=== PATIENT | male | born 1940 | race Asian ===

== ENCOUNTER 2016-05-07 13:56 | Inpatient (IN) | payer OTHER, MEDICARE ==
--- NOTE | 2016-05-07 14:44 | ED Physician Chart ---
Chief Complaint/HPI - Patient Information Date Seen:: 05/07/16 Time Seen:: 13:50 Chief Complaint:: Erythema in L elbow for about one week. History of Present Illness:: Brought in by ambulance for the above reason. No fever. Taking po well without N /V/D. No significant pain with L elbow movement. No other bodily pain or discomfort. Allergies:: Allergies Allergy/AdvReac Type Severity Reaction Status Date / Time No Known Allergies Allergy Verified 05/07/16 14:19 Vitals:: Vital Signs - 8 hr 05/07/16 14:20 Temp 98.2 F HR 96 RR 21 BP 137/80 O2 Sat % 99 Historian:: Patient Family MD/PCP:: Dr. Bustos. LMP:: N/A Review:: Nurse's Note Reviewed, Transfer documents Reviewed Review of Systems - Review of Systems General/Constitutional: No fever, No chills, No weight loss, No weakness, No diaphoresis, No edema, No loss of appetite Skin: Other (redness in L elbow area for about one week. See HPI.) Head: No headache, No light-headedness Eyes: No loss of vision, No pain, No diplopia ENT: No earache, No nasal drainage, No sore throat, No tinnitus Neck: No neck pain, No swelling, No thyromegaly, No stiffness, No mass noted Cardio Vascular: No chest pain, No palpitations, No PND, No orthopnea, No edema Pulmonary: No SOB, No cough, No sputum, No wheezing GI: No nausea, No vomiting, No diarrhea, No pain, No melena, No hematochezia, No constipation, No hematemesis G/U: No dysuria, No frequency, No hematuria Musculoskeletal: No bone or joint pain, No back pain, No muscle pain Endocrine: No polyuria, No polydipsia Psychiatric: No prior psych history Hematopoietic: No bruising, No lymphadenopathy Allergic/Immuno: No urticaria, No angioedema Neurological: No syncope, No focal symptoms, No weakness, No paresthesia, No headache, No seizure, No dizziness, No confusion, No vertigo Past Medical History - Past Medical History Past Medical History: HTN, DM, Dementia Family History: Diabetes Melitus (father) Social History: Non Smoker, No Alcohol, No Drug Use, , Care Facility Employment:: Retired. Surgical History: None Psychiatricy History: Dementia Medication: Reviewed Family Medical History - Family Member Mother History Unknown: Yes Ethnicity: Non- Living Status: Physical Exam - Physical Examination General/Constitutional: Awake, Well-developed, well-nourished, Alert, No distress, Non-toxic appearing Other Gen/Cons comments:: Breathes comfortably, speaks clearly, and interacts normally. Head: Atraumatic Eyes: Lids, conjuctiva normal, PERRL, EOMI Skin: No ecchymosis, Well hydrated, No lymphadenopathy Other Skin comments:: also see Extremities Exam below. ENMT: External ears, nose nl, Nasal exam nl, Oropharynx nl Neck: Nontender, Full ROM w/o pain, No JVD, No nuchal rigidity, No mass, No stridor Respiratory: Nl effort/Exclusion, Clear to Auscultation, No Wheeze/Rhonchi/Rales Cardio Vascular: RRR, No murmur, gallop, rubs, NL S1 S2 GI: No tenderness/rebounding/guarding, No organomegaly, No hernia, Normal BS's, Nondistended, No mass/bruits, No McBurney tenderness Other GI comments:: Abdomen is soft. Other Extremities comments:: L elbow: Good ROM. There is an approx. 0.75 cm open wound at posterior aspect. No exudate. There is peripheral erythema with mild swelling and warmth. No crepitus. No detectable motor/sensory/vascular deficit. Good distal pulse and capillary refill. Neuro/Psych: Alert/oriented (oriented x 3.), Mood normal, No focal deficits Labs/Radiology/EKG Results - Lab Results Results: Laboratory Tests 05/07/16 05/07/16 05/07/16 15:10 15:10 15:10 WBC 7.7 RBC 4.57 Hgb 13.4 Hct 39.4 MCV 86.2 MCH 29.3 MCHC Differential 34.0 RDW 12.7 Plt Count 267 MPV 6.8 Neutrophils % 67.6 Lymphocytes % 16.8 L Monocytes % 10.5 H Eosinophils % 3.9 Basophils % 1.2 PT 9.9 INR 1.00 PTT (Actin FS) 22.5 L Sodium 129 L Potassium 4.1 Chloride 99 Carbon Dioxide 26.3 Anion Gap 7.8 BUN 19 Creatinine 0.7 Est GFR ( Amer) TNP Est GFR (Non-Af Amer) TNP BUN/Creatinine Ratio 27.1 Glucose 218 H Hemoglobin A1c % Whole Bld Lactic Acid Calcium 9.4 Total Bilirubin 0.2 L AST 32 ALT 33 Alkaline Phosphatase 136 H Total Protein 6.8 Albumin 3.1 L Globulin 3.7 Albumin/Globulin Ratio 0.8 L 05/07/16 05/07/16 15:10 15:10 WBC RBC Hgb Hct MCV MCH MCHC Differential RDW Plt Count MPV Neutrophils % Lymphocytes % Monocytes % Eosinophils % Basophils % PT INR PTT (Actin FS) Sodium Potassium Chloride Carbon Dioxide Anion Gap BUN Creatinine Est GFR ( Amer) Est GFR (Non-Af Amer) BUN/Creatinine Ratio Glucose Hemoglobin A1c % 10.1 H Whole Bld Lactic Acid 2.38 H* Calcium Total Bilirubin AST ALT Alkaline Phosphatase Total Protein Albumin Globulin Albumin/Globulin Ratio - Radiology Results Results: L elbow X-ray is pending. ED Septic Shock - . Is Septic Shock (SBP<90, OR Lactate>4 mmol\L) present?: No - <6hrs of presentation: Vital Signs: Vital Signs - 8 hr 05/07/16 14:20 Temp 98.2 F HR 96 RR 21 BP 137/80 O2 Sat % 99 Reassessment (Disposition) - Reassessment Reassessment:: 1722 Pt has been repeatedly evaluated. Pt remains stable. Lab findings have been reviewed with pt. Management plan has been discussed. Dr. Bustos is at bedside. Pt is to be admitted to [facility] under his care. Dr. Bustos states that he will follow on pending L elbow X-ray. - Diagnosis Diagnosis:: Open wound at L elbow with associated wound infection/cellulitis, stable. - Patient Disposition Admitted to:: Med/Surg Admitting Medical Physician:: Kalyani Bustos Time:: 17:25 Condition at Disposition:: Stable
[2016-05-07 15:16] LABS: % BASOPHILS 1.2 % (0.0-2.0); % EOSINOPHILS 3.9 % (0.0-5.0); % LYMPHOCYTES 16.8 % (20.0-50.0); % MONOCYTES 10.5 % (2.0-10.0); % NEUTROPHILS 67.6 % (40.0-80.0); HEMATOCRIT 39.4 % (39.0-49.0); HEMOGLOBIN 13.4 gm/dL (12.6-17.4); MEAN CELL VOLUME 86.2 fl (80-99); MEAN CORPUSCULAR HEMOGLOBIN 29.3 pg (27.0-31.0); MEAN PLATELET VOLUME 6.8 fl; NEUTROPHILE ABSOLUTE 5.2 Th/cmm (1.8-8.0); PLATELET COUNT 267 Th/cmm (150-400); RED BLOOD COUNT 4.57 Mil/cmm (3.80-5.80); RED CELL DISTRIBUTION WIDTH 12.7 % (11.5-20.0); WHITE BLOOD COUNT 7.7 Th/cmm (4.8-10.8)
[2016-05-07 15:30] LABS: PROTHROMBIN TIME (TEST) 9.9 SECONDS (9.5-11.5)
[2016-05-07 15:31] LABS: CARBON DIOXIDE 26.3 mEq/L (21.0-31.0); CHLORIDE 99 mEq/L (98-107); POTASSIUM SERUM 4.1 mEq/L (3.5-5.1); SODIUM SERUM 129 mEq/L (136-145)
[2016-05-07 15:32] LABS: ALB/GLOB RATIO 0.8 (1.0-1.8); ALKALINE PHOSPHATASE 136 U/L (34-104); ANION GAP 7.8 (7.0-16.0); BILIRUBIN,TOTAL 0.2 mg/dL (0.3-1.0); BUN - UREA NITROGEN 19 mg/dL (7-25); BUN/CREATININE RATIO 27.1; CALCIUM SERUM 9.4 mg/dL (8.6-10.3); CREATININE - SERUM 0.7 mg/dL (0.7-1.3); GLUCOSE 218 mg/dL (70-105); SGOT 32 U/L (13-39); SGPT/ALT 33 U/L (7-52)
[2016-05-07] MEDS ORDERED: Non-Formulary Item 1 EA (Acetaminophen [8 Hour] 650 MG) PO PRN (17:52)
[2016-05-07] MEDS ORDERED: INSULIN HUMAN REGULAR 100 UNITS/ML UNIT SUBQ SCH (18:00)
[2016-05-07] MEDS ORDERED: Morphine Sulfate 2 mg/mL 1mL Syr IVP PRN ×2 (18:21→18:22)
[2016-05-07] MEDS ORDERED: Piperacillin Sodium/Tazobact 3.375 gm Vial IV ONE (20:55)
--- NOTE | 2016-05-08 05:54 | Consultation ---
REFERRING PHYSICIAN: Dr. Bustos. REASON FOR CONSULTATION: Left elbow cellulitis. HISTORY OF PRESENT ILLNESS: The patient is a 75-year-old male with a past medical history of diabetes mellitus type 2, Alzheimer dementia, brought in from nursing facility for draining wound with the surrounding tender, swelling and erythema of left elbow for 1 week. On initial evaluation, the patient's temperature was 98.2-degree Fahrenheit and WBC count was 7700. The patient was started on vancomycin and Zosyn and ID consult was called for further antibiotic management. PAST MEDICAL HISTORY: Includes as mentioned above, Alzheimer dementia, diabetes mellitus type 2. ALLERGIES: NKDA. MEDICATIONS: As per medication reconciliation sheet. Antibiotic abbott, the patient is on vancomycin and Zosyn. SOCIAL HISTORY: The patient lives at nursing facility. No history of smoking, alcohol or drug use. REVIEW OF SYSTEMS: The patient is a poor historian. GENERAL: The patient has no fever, no chills. HEENT: No diplopia, no photophobia, no sore throat. RESPIRATORY: No cough, no shortness of breath. CARDIOVASCULAR: No chest pain or palpitation. GASTROINTESTINAL: No nausea, no vomiting, no diarrhea, no constipation. GENITOURINARY: No dysuria. NEUROLOGIC: No headache, no dizziness, no focal weakness. SKIN: The patient has draining ulcer from the left elbow with a surrounding painful swelling and erythema. PHYSICAL EXAMINATION: CURRENT VITAL SIGNS: Shows temperature 99.5-degree Fahrenheit, pulse 104, respiration is 18, blood pressure 125/68. GENERAL: The patient is comfortable, lying in the bed, not in acute distress. HEENT: Head is normocephalic, atraumatic. Oral cavity moist, pink tongue. Eyes: No pallor, no icterus. Pupils PERRLA, EOMI. NECK: Supple, no JVD, no carotid bruit. Trachea in midline. CHEST: Bilateral breath sounds. No crackles or wheezing. HEART: S1, S2 within normal limits. Regular rhythm. No murmur, no gallop. ABDOMEN: Soft, nontender, nondistended. Bowel sounds present. EXTREMITIES: No cyanosis, no clubbing. The patient has swelling, redness of the left elbow and draining pus from the wound at the center. NEUROLOGIC: Alert, awake, communicates well. LABORATORY DATA: Lab abbott, current lab shows WBC count is 7700, hemoglobin 13.4, hematocrit is 39.4, platelets are 267,000, neutrophil is 67.6%. Sodium is 129, potassium 4.1, chloride 99, bicarb is 26, BUN is 19, creatinine 0.7, glucose is 218, and lactic acid is 2.38. IMPRESSION: 1. Left elbow cellulitis and the abscess. 2. Lactic acidosis, unknown etiology. The patient has no fever, no tachycardia, no tachypnea and no leukocytosis. 3. Dementia. 4. Diabetes mellitus type 2. 5. Hypertension. RECOMMENDATIONS: We will continue vancomycin. Change Zosyn to Rocephin. Check the wound culture. Thank you, Dr. Bustos, for involving me in taking care of this patient. JOB# [id number]
--- NOTE | 2016-05-08 06:24 | Admit Criteria Form ---
Admit Criteria Forms - Admit Criteria Diagnosis: CELLULITIS Clinical Indications for Admission to Inpatient Care (Place 'X' for any and all applicable criteria): Admission is indicated for ANY ONE of the following(1)(2)(3)(4)(5): [ ]I. Limb-threatening infection [ ]II. High-risk comorbid condition as indicated by ANY ONE of the following: [ ]a) Uncontrolled diabetes (eg, HbA1c greater than 10% (0.1)) [ ]b) Cirrhosis [ ]c) Neutropenia [ ]d) Asplenia [ ]e) Immunosuppression [ ]f) Symptomatic heart failure [ ]III. Failure of outpatient therapy as indicated by ALL of the following: [ ]a) Progression or no improvement after adequate trial (minimum of 48 hours, with longer period for stable lower extremity infection) [ ]b) Adequate antibiotic regimen as indicated by use of ANY ONE of the following: [ ]i) First-generation cephalosporin (e.g., cephalexin) [ ]ii) Antistaphylococcal penicillin (e.g., dicloxacillin) [ ]iii) Penicillin-allergic patient regimen (clindamycin, extended-spectrum fluoroquinolone, or doxycycline) [ ]iv) Resistant organism (eg, methicillin-resistant Staphylococcus aureus) regimen (6) [ ]c) Outpatient intravenous therapy regimen is not appropriate due to ANY ONE of the following. (7)(8)(9)(10): [ ]i) It was tried and was not successful (eg, progression of infection). [ ]ii) It is not available or cannot be arranged in a clinically appropriate time frame (e.g., the next day). [ ]iii) Clinical presentation (eg, acuity of infection, rapidity of progression, confirmed or suspected bacteremia) is judged to require ALL of the following: [ ]1) Immediate initiation of intravenous therapy ( eg, cannot wait for next day) [ ]2) Intensity of patient monitoring and observation (eg, vital sign measurement, checks for infection progression) that cannot be provided at other than inpatient level of care [ ]IV. Mental status changes [ ]V. Bacteremia [ ]. Hemodynamic instability [ ]VII. Suspected necrotizing soft tissue infection (e.g., gas in tissue)(11)( 12) [ ]VIII. Orbital infection (13)(14) [ ]IX. Associated surgical procedure (e.g., abscess drainage, debridement) not amenable to outpatient, emergency department, or observation care [ ]X. Cutaneous gangrene [ ]XI. High fever (temperature greater than 39.5 degrees C (103.1 degrees F) (oral)) not responsive to outpatient, emergency department, or observation care therapy [X]XIII. Inpatient admission required rather than observation care (Also use Cellulitis: Observation Care as appropriate) because of ANY ONE of the following : [ ]a) Periorbital or perineal infection that is severe or worsening [X]b) Severe pain requiring acute inpatient management [ ]c) IV fluid to replace significant ongoing (e.g., for over 24 hours) losses (greater than 3L/m2 per day) [ ]d) Compartment syndrome monitoring (17) [ ]e) Strict or protective (eg, laminar flow) isolation [ ]f) Urgent debridement or skin grafting [ ]g) Bone or joint debridement [ ]h) Immediate inpatient surgery [ ]i) Other condition, treatment or monitoring requiring inpatient admission Extended stay beyond goal length of stay may be needed for (1)(18): [ ]a) Necrotizing soft tissue infection or fasciitis [ ]b) Gram-negative infection [ ]c) Methicillin-resistant Staphylococcal aureus (MRSA) infection [ ]d) Peripheral venous insufficiency with cellulitis [ ]e) Extensive edema [ ]f) Sepsis or continued Hemodynamic instability [ ]g) Continued high fever or mental status change [ ]h) Bacteremia [ ]i) Active serious comorbid conditions ( eg, heart failure, renal insufficiency) The original [facility] content created by [employer] has been revised. The portions of the content which have been revised are identified through the use of italic text or in bold, and [facility] has neither reviewed nor approved the modified material. All other unmodified content is copyright [facility] Please see references footnoted in the original [facility] edition 2016
[2016-05-08 07:24] LABS: % EOSINOPHILS 3.7 % (0.0-5.0); MEAN CORPUSCULAR HGB CONC 34.6 pg (28.0-36.0); WHITE BLOOD COUNT 6.8 Th/cmm (4.8-10.8)
[2016-05-08] MEDS ORDERED: INSULIN GLULISINE 10 UNIT SQ SCH (07:30)
[2016-05-08 07:38] LABS: ALB/GLOB RATIO 0.8 (1.0-1.8); ALKALINE PHOSPHATASE 113 U/L (34-104); ANION GAP 7.2 (7.0-16.0); BILIRUBIN,TOTAL 0.5 mg/dL (0.3-1.0); BUN - UREA NITROGEN 19 mg/dL (7-25); BUN/CREATININE RATIO 27.1; CALCIUM SERUM 8.7 mg/dL (8.6-10.3); CARBON DIOXIDE 27.8 mEq/L (21.0-31.0); CHLORIDE 100 mEq/L (98-107); CHOLESTEROL 189 mg/dL (<200); CREATININE - SERUM 0.7 mg/dL (0.7-1.3); GLUCOSE 282 mg/dL (70-105); SGOT 17 U/L (13-39); SGPT/ALT 30 U/L (7-52); SODIUM SERUM 131 mEq/L (136-145); TRIGLYCERIDES 219 mg/dL (<150)
[2016-05-08 07:52] LABS: % LYMPHOCYTES 17.5 % (20.0-50.0); % MONOCYTES 9.2 % (2.0-10.0); % NEUTROPHILS 67.6 % (40.0-80.0); HEMATOCRIT 38.2 % (39.0-49.0); HEMOGLOBIN 13.2 gm/dL (12.6-17.4); MEAN CELL VOLUME 85.4 fl (80-99); MEAN CORPUSCULAR HEMOGLOBIN 29.5 pg (27.0-31.0); MEAN PLATELET VOLUME 7.6 fl; NEUTROPHILE ABSOLUTE 4.6 Th/cmm (1.8-8.0); PLATELET COUNT 240 Th/cmm (150-400); RED BLOOD COUNT 4.48 Mil/cmm (3.80-5.80); RED CELL DISTRIBUTION WIDTH 12.5 % (11.5-20.0)
--- NOTE | 2016-05-08 08:38 | General Progress Note ---
Objective - Results Result Diagrams: 05/08/16 06:00 05/08/16 06:00 Recent Labs: Laboratory Last Values WBC 6.8 Th/cmm (4.8-10.8) 05/08/16 06:00 RBC 4.48 Mil/cmm (3.80-5.80) 05/08/16 06:00 Hgb 13.2 gm/dL (12.6-17.4) 05/08/16 06:00 Hct 38.2 % (39.0-49.0) L 05/08/16 06:00 MCV 85.4 fl (80-99) 05/08/16 06:00 MCH 29.5 pg (27.0-31.0) 05/08/16 06:00 MCHC Differential 34.6 pg (28.0-36.0) 05/08/16 06:00 RDW 12.5 % (11.5-20.0) 05/08/16 06:00 Plt Count 240 Th/cmm (150-400) 05/08/16 06:00 MPV 7.6 fl 05/08/16 06:00 Neutrophils % 67.6 % (40.0-80.0) 05/08/16 06:00 Lymphocytes % 17.5 % (20.0-50.0) L 05/08/16 06:00 Monocytes % 9.2 % (2.0-10.0) 05/08/16 06:00 Eosinophils % 3.7 % (0.0-5.0) 05/08/16 06:00 Basophils % 2.0 % (0.0-2.0) 05/08/16 06:00 PT 9.9 SECONDS (9.5-11.5) 05/07/16 15:10 INR 1.00 (0.5-1.4) 05/07/16 15:10 PTT (Actin FS) 22.5 SECONDS (26.0-38.0) L 05/07/16 15:10 Sodium 131 mEq/L (136-145) L 05/08/16 06:00 Potassium 4.0 mEq/L (3.5-5.1) 05/08/16 06:00 Chloride 100 mEq/L (98-107) 05/08/16 06:00 Carbon Dioxide 27.8 mEq/L (21.0-31.0) 05/08/16 06:00 Anion Gap 7.2 (7.0-16.0) 05/08/16 06:00 BUN 19 mg/dL (7-25) 05/08/16 06:00 Creatinine 0.7 mg/dL (0.7-1.3) 05/08/16 06:00 Est GFR ( Amer) TNP 05/08/16 06:00 Est GFR (Non-Af Amer) TNP 05/08/16 06:00 BUN/Creatinine Ratio 27.1 05/08/16 06:00 Glucose 282 mg/dL (70-105) H 05/08/16 06:00 POC Glucose 261 MG/DL (70 - 105) H 05/08/16 06:39 Hemoglobin A1c % 10.1 % (4.0-6.0) H 05/07/16 15:10 Whole Bld Lactic Acid 2.08 mmol/L (0.60-2.00) H* 05/07/16 17:10 Calcium 8.7 mg/dL (8.6-10.3) 05/08/16 06:00 Total Bilirubin 0.5 mg/dL (0.3-1.0) 05/08/16 06:00 AST 17 U/L (13-39) 05/08/16 06:00 ALT 30 U/L (7-52) 05/08/16 06:00 Alkaline Phosphatase 113 U/L (34-104) H 05/08/16 06:00 Total Protein 6.3 gm/dL (6.0-8.3) 05/08/16 06:00 Albumin 2.8 gm/dL (4.2-5.5) L 05/08/16 06:00 Globulin 3.5 gm/dL 05/08/16 06:00 Albumin/Globulin Ratio 0.8 (1.0-1.8) L 05/08/16 06:00 Triglycerides 219 mg/dL (<150) H 05/08/16 06:00 Cholesterol 189 mg/dL (<200) 05/08/16 06:00 LDL Cholesterol Direct 120 mg/dL (75-193) 05/08/16 06:00 HDL Cholesterol 43 mg/dL (23-92) 05/08/16 06:00 - Physical Exam Vitals and I&O: Vital Signs Temp 99.2 F 05/08/16 04:00 Pulse 85 05/08/16 04:00 Resp 17 05/08/16 04:00 BP 146/77 05/08/16 04:00 Pulse Ox 96 05/08/16 04:00 Intake & Output 05/07/16 05/08/16 05/08/16 18:59 06:59 18:59 Intake Total 50 Balance 50 Intake: Intake, IV Amount 50 cefTRIAXone 1 gm In 50 Dextrose 5% 50 ml @ 100 mls/hr IV Q24H [facility] Rx#: [id number] Other: # Voids 3 # Bowel Movements 0 Stool Characteristics Soft Formed Active Medications: Current Medications Acetaminophen (Tylenol) 650 mg PO Q6H PRN PRN Reason: PAIN Stop: 07/06/16 18:30 Bisacodyl (Dulcolax 10 Mg Supp) 10 mg RC Q72H PRN PRN Reason: Constipation Stop: 07/06/16 17:51 Calcium/Vitamin D (Oscal W/Vitamin D) 1 tab PO DAILY [facility] Stop: 07/07/16 08:59 Dextrose (Glutose 40%) 30 gm PO PRN PRN PRN Reason: BLOOD GLUCOSE <60 Stop: 07/06/16 17:51 Galantamine Hydrobromide (Razadyne) 8 mg PO BID [facility] Stop: 07/07/16 08:59 Vancomycin HCl 1.25 gm/ Sodium (Chloride) 250 mls @ 165 mls/hr IV Q24H [facility] Stop: 07/07/16 08:59 Ceftriaxone Sodium 1 gm/ (Dextrose) 50 mls @ 100 mls/hr IV Q24H [facility] Stop: 07/07/16 02:59 Last Infusion: 05/08/16 04:25 Dose: Infused Insulin Detemir (Levemir Insulin) 20 units SUBQ QAM [facility] Stop: 07/07/16 08:59 Metoprolol Tartrate (Lopressor) 25 mg PO BID [facility] Stop: 07/07/16 08:59 Miscellaneous (Insulin Glulisine [Apidra]) 10 unit SQ AC [facility] Stop: 07/07/16 07:29 Morphine Sulfate (Morphine) 1 mg IVP Q4H PRN PRN Reason: Pain (Moderate) Stop: 07/06/16 18:20 Morphine Sulfate (Morphine) 2 mg IVP Q4H PRN PRN Reason: Pain (Severe) Stop: 07/06/16 18:21 Neomycin/Polymyxin/Bacitracin (Triple Antibiotic Pkt) 1 pkt TP DAILY [facility] Stop: 07/07/16 08:59 Senna (Senna) 17.2 mg PO HS PRN PRN Reason: Constipation Stop: 07/06/16 17:51 Assessment/Plan - Problem List Patient Problems: All Active Problems SWOLLEN, RED, PAINFUL LEFT ELBOW (Acute)
[2016-05-08] MEDS: Insulin Detemir 100 units/mL 10mL Vial SUBQ SCH (08:55)
[2016-05-08] MEDS: Triple Antibiotic 0.94 gm Pkt TP SCH (08:56)
[2016-05-08] MEDS: Calcium Carb/Vit D 500 mg/200 U Tab PO SCH (08:57)
[2016-05-08] MEDS ORDERED: GALANTAMINE HBR 8 MG PO SCH (09:00)
[2016-05-08] MEDS ORDERED: INSULIN GLARGINE RECOMBINAN SUBQ SCH (09:00)
[2016-05-08] MEDS: INSULIN ASPART SLIDING SCALE 100 UNITS/ML UNIT SUBQ SCH ×3 (11:34→23:07)
--- NOTE | 2016-05-08 13:52 | Infectious Disease Prog Note ---
Infectious Disease Subjective - Review of Systems Service Date: 05/08/16 Subjective: There is no new change, there is no fever. Infectious Disease Objective - Results Result Diagrams: 05/08/16 06:00 05/08/16 06:00 Recent Labs: Laboratory Last Values WBC 6.8 Th/cmm (4.8-10.8) 05/08/16 06:00 RBC 4.48 Mil/cmm (3.80-5.80) 05/08/16 06:00 Hgb 13.2 gm/dL (12.6-17.4) 05/08/16 06:00 Hct 38.2 % (39.0-49.0) L 05/08/16 06:00 MCV 85.4 fl (80-99) 05/08/16 06:00 MCH 29.5 pg (27.0-31.0) 05/08/16 06:00 MCHC Differential 34.6 pg (28.0-36.0) 05/08/16 06:00 RDW 12.5 % (11.5-20.0) 05/08/16 06:00 Plt Count 240 Th/cmm (150-400) 05/08/16 06:00 MPV 7.6 fl 05/08/16 06:00 Neutrophils % 67.6 % (40.0-80.0) 05/08/16 06:00 Lymphocytes % 17.5 % (20.0-50.0) L 05/08/16 06:00 Monocytes % 9.2 % (2.0-10.0) 05/08/16 06:00 Eosinophils % 3.7 % (0.0-5.0) 05/08/16 06:00 Basophils % 2.0 % (0.0-2.0) 05/08/16 06:00 PT 9.9 SECONDS (9.5-11.5) 05/07/16 15:10 INR 1.00 (0.5-1.4) 05/07/16 15:10 PTT (Actin FS) 22.5 SECONDS (26.0-38.0) L 05/07/16 15:10 Sodium 131 mEq/L (136-145) L 05/08/16 06:00 Potassium 4.0 mEq/L (3.5-5.1) 05/08/16 06:00 Chloride 100 mEq/L (98-107) 05/08/16 06:00 Carbon Dioxide 27.8 mEq/L (21.0-31.0) 05/08/16 06:00 Anion Gap 7.2 (7.0-16.0) 05/08/16 06:00 BUN 19 mg/dL (7-25) 05/08/16 06:00 Creatinine 0.7 mg/dL (0.7-1.3) 05/08/16 06:00 Est GFR ( Amer) TNP 05/08/16 06:00 Est GFR (Non-Af Amer) TNP 05/08/16 06:00 BUN/Creatinine Ratio 27.1 05/08/16 06:00 Glucose 282 mg/dL (70-105) H 05/08/16 06:00 POC Glucose 360 MG/DL (70 - 105) H 05/08/16 08:53 Hemoglobin A1c % 10.1 % (4.0-6.0) H 05/07/16 15:10 Whole Bld Lactic Acid 2.08 mmol/L (0.60-2.00) H* 05/07/16 17:10 Calcium 8.7 mg/dL (8.6-10.3) 05/08/16 06:00 Total Bilirubin 0.5 mg/dL (0.3-1.0) 05/08/16 06:00 AST 17 U/L (13-39) 05/08/16 06:00 ALT 30 U/L (7-52) 05/08/16 06:00 Alkaline Phosphatase 113 U/L (34-104) H 05/08/16 06:00 Total Protein 6.3 gm/dL (6.0-8.3) 05/08/16 06:00 Albumin 2.8 gm/dL (4.2-5.5) L 05/08/16 06:00 Globulin 3.5 gm/dL 05/08/16 06:00 Albumin/Globulin Ratio 0.8 (1.0-1.8) L 05/08/16 06:00 Triglycerides 219 mg/dL (<150) H 05/08/16 06:00 Cholesterol 189 mg/dL (<200) 05/08/16 06:00 LDL Cholesterol Direct 120 mg/dL (75-193) 05/08/16 06:00 HDL Cholesterol 43 mg/dL (23-92) 05/08/16 06:00 TSH 0.70 uIU/ml (0.34-5.60) 05/08/16 06:00 - Physical Exam Vitals and I&O: Vital Signs Temp 97.6 F 05/08/16 12:16 Pulse 80 05/08/16 12:16 Resp 20 05/08/16 12:16 BP 127/70 05/08/16 12:16 Pulse Ox 99 05/08/16 12:16 Intake & Output 05/07/16 05/08/16 05/08/16 18:59 06:59 18:59 Intake Total 50 Balance 50 Intake: Intake, IV Amount 50 cefTRIAXone 1 gm In 50 Dextrose 5% 50 ml @ 100 mls/hr IV Q24H [facility] Rx#: [id number] Other: # Voids 3 # Bowel Movements 0 Stool Characteristics Soft Soft Formed Formed Active Medications: Current Medications Acetaminophen (Tylenol) 650 mg PO Q6H PRN PRN Reason: PAIN Stop: 07/06/16 18:30 Bisacodyl (Dulcolax 10 Mg Supp) 10 mg RC Q72H PRN PRN Reason: Constipation Stop: 07/06/16 17:51 Calcium/Vitamin D (Oscal W/Vitamin D) 1 tab PO DAILY [facility] Stop: 07/07/16 08:59 Last Admin: 05/08/16 08:57 Dose: 1 tab Dextrose (Glutose 40%) 30 gm PO PRN PRN PRN Reason: BLOOD GLUCOSE <60 Stop: 07/06/16 17:51 Galantamine Hydrobromide (Razadyne) 8 mg PO BID [facility] Stop: 07/07/16 08:59 Last Admin: 05/08/16 08:57 Dose: 8 mg Vancomycin HCl 1.25 gm/ Sodium (Chloride) 250 mls @ 165 mls/hr IV Q24H [facility] Stop: 07/07/16 08:59 Last Admin: 05/08/16 08:55 Dose: 165 mls/hr Ceftriaxone Sodium 1 gm/ (Dextrose) 50 mls @ 100 mls/hr IV Q24H [facility] Stop: 07/07/16 02:59 Last Infusion: 05/08/16 04:25 Dose: Infused Insulin Aspart (Novolog Insulin Sliding Scale) 0 units SUBQ ACHS [facility] PRN Reason: Protocol Stop: 07/07/16 11:29 Last Admin: 05/08/16 11:34 Dose: 6 units Insulin Detemir (Levemir Insulin) 20 units SUBQ QAM [facility] Stop: 07/07/16 08:59 Last Admin: 05/08/16 08:55 Dose: 20 units Metoprolol Tartrate (Lopressor) 25 mg PO BID [facility] Stop: 07/07/16 08:59 Last Admin: 05/08/16 08:56 Dose: 25 mg Miscellaneous (Insulin Glulisine [Apidra]) 10 unit SQ AC [facility] Stop: 07/07/16 07:29 Miscellaneous (Vancomycin Iv Per Pharmacy) 1 ea [facility] PRN PRN PRN Reason: VANCOMYCIN DOSING Stop: 07/07/16 08:37 Morphine Sulfate (Morphine) 1 mg IVP Q4H PRN PRN Reason: Pain (Moderate) Stop: 07/06/16 18:20 Morphine Sulfate (Morphine) 2 mg IVP Q4H PRN PRN Reason: Pain (Severe) Stop: 07/06/16 18:21 Neomycin/Polymyxin/Bacitracin (Triple Antibiotic Pkt) 1 pkt TP DAILY [facility] Stop: 07/07/16 08:59 Last Admin: 05/08/16 08:56 Dose: 1 pkt Senna (Senna) 17.2 mg PO HS PRN PRN Reason: Constipation Stop: 07/06/16 17:51 General: no acute distress, well developed, well nourished HEENT: atraumatic, normocephalic, PERRLA Neck: supple, no thyromegaly, no lymphadenopathy Cardiovascular: S1S2, regular Lungs: clear to auscultation bilaterally, clear to percussion Abdomen: soft, no tender, no distended Extremities: other (Left elbow has tender erythmatous swelling. with pus draining wound at the center.), no cyanosis, no clubbing, no edema Neurological: awake, alert, oriented Skin: intact Infectious Disease Assmt/Plan - Problem List Patient Problems: All Active Problems SWOLLEN, RED, PAINFUL LEFT ELBOW (Acute) - Assessment Assessment: 1. Left elbow cellulitis. 2. Dementia. 3. DM2. 4. HTN. - Plan Plan: Will continue vanco and Rocephin.
--- NOTE | 2016-05-08 16:26 | Diagnostic Imaging Report ---
Left elbow (4 views) HISTORY: Pain No acute bony amenities are seen. No fractures. Joint spaces appear normal. No radiographic evidence for joint effusion. Soft tissue disruption noted over the dorsal aspect of the elbow. IMPRESSION: 1. No acute or focal bony abnormalities 2. Soft tissue disruption over the dorsal aspect of the elbow
[2016-05-09] MEDS: INSULIN ASPART SLIDING SCALE 100 UNITS/ML UNIT SUBQ SCH ×4 (07:24→21:48)
[2016-05-09] MEDS: Calcium Carb/Vit D 500 mg/200 U Tab PO SCH (09:28)
[2016-05-09] MEDS: Triple Antibiotic 0.94 gm Pkt TP SCH (09:28)
--- NOTE | 2016-05-09 09:52 | General Progress Note ---
Objective - Results Result Diagrams: 05/08/16 06:00 05/08/16 06:00 Recent Labs: Laboratory Last Values WBC 6.8 Th/cmm (4.8-10.8) 05/08/16 06:00 RBC 4.48 Mil/cmm (3.80-5.80) 05/08/16 06:00 Hgb 13.2 gm/dL (12.6-17.4) 05/08/16 06:00 Hct 38.2 % (39.0-49.0) L 05/08/16 06:00 MCV 85.4 fl (80-99) 05/08/16 06:00 MCH 29.5 pg (27.0-31.0) 05/08/16 06:00 MCHC Differential 34.6 pg (28.0-36.0) 05/08/16 06:00 RDW 12.5 % (11.5-20.0) 05/08/16 06:00 Plt Count 240 Th/cmm (150-400) 05/08/16 06:00 MPV 7.6 fl 05/08/16 06:00 Neutrophils % 67.6 % (40.0-80.0) 05/08/16 06:00 Lymphocytes % 17.5 % (20.0-50.0) L 05/08/16 06:00 Monocytes % 9.2 % (2.0-10.0) 05/08/16 06:00 Eosinophils % 3.7 % (0.0-5.0) 05/08/16 06:00 Basophils % 2.0 % (0.0-2.0) 05/08/16 06:00 PT 9.9 SECONDS (9.5-11.5) 05/07/16 15:10 INR 1.00 (0.5-1.4) 05/07/16 15:10 PTT (Actin FS) 22.5 SECONDS (26.0-38.0) L 05/07/16 15:10 Sodium 131 mEq/L (136-145) L 05/08/16 06:00 Potassium 4.0 mEq/L (3.5-5.1) 05/08/16 06:00 Chloride 100 mEq/L (98-107) 05/08/16 06:00 Carbon Dioxide 27.8 mEq/L (21.0-31.0) 05/08/16 06:00 Anion Gap 7.2 (7.0-16.0) 05/08/16 06:00 BUN 19 mg/dL (7-25) 05/08/16 06:00 Creatinine 0.7 mg/dL (0.7-1.3) 05/08/16 06:00 Est GFR ( Amer) TNP 05/08/16 06:00 Est GFR (Non-Af Amer) TNP 05/08/16 06:00 BUN/Creatinine Ratio 27.1 05/08/16 06:00 Glucose 282 mg/dL (70-105) H 05/08/16 06:00 POC Glucose 281 MG/DL (70 - 105) H 05/09/16 05:08 Hemoglobin A1c % 10.1 % (4.0-6.0) H 05/07/16 15:10 Whole Bld Lactic Acid 2.08 mmol/L (0.60-2.00) H* 05/07/16 17:10 Calcium 8.7 mg/dL (8.6-10.3) 05/08/16 06:00 Total Bilirubin 0.5 mg/dL (0.3-1.0) 05/08/16 06:00 AST 17 U/L (13-39) 05/08/16 06:00 ALT 30 U/L (7-52) 05/08/16 06:00 Alkaline Phosphatase 113 U/L (34-104) H 05/08/16 06:00 Total Protein 6.3 gm/dL (6.0-8.3) 05/08/16 06:00 Albumin 2.8 gm/dL (4.2-5.5) L 05/08/16 06:00 Globulin 3.5 gm/dL 05/08/16 06:00 Albumin/Globulin Ratio 0.8 (1.0-1.8) L 05/08/16 06:00 Triglycerides 219 mg/dL (<150) H 05/08/16 06:00 Cholesterol 189 mg/dL (<200) 05/08/16 06:00 LDL Cholesterol Direct 120 mg/dL (75-193) 05/08/16 06:00 HDL Cholesterol 43 mg/dL (23-92) 05/08/16 06:00 TSH 0.70 uIU/ml (0.34-5.60) 05/08/16 06:00 - Physical Exam Vitals and I&O: Vital Signs Temp 97.5 F 05/09/16 03:59 Pulse 90 05/09/16 09:28 Resp 20 05/09/16 03:59 BP 137/72 05/09/16 09:28 Pulse Ox 97 05/09/16 03:59 Intake & Output 05/08/16 05/09/16 05/09/16 18:59 06:59 18:59 Intake Total 250 Balance 250 Intake: Intake, IV Amount 250 Vancomycin HCl 1.25 gm In 250 Sodium Chloride 0.9% 250 ml @ 165 mls/hr IV Q24H [facility] Rx#:[id number] Other: # Voids 1 Stool Characteristics Soft Formed Active Medications: Current Medications Acetaminophen (Tylenol) 650 mg PO Q6H PRN PRN Reason: PAIN Stop: 07/06/16 18:30 Bisacodyl (Dulcolax 10 Mg Supp) 10 mg RC Q72H PRN PRN Reason: Constipation Stop: 07/06/16 17:51 Calcium/Vitamin D (Oscal W/Vitamin D) 1 tab PO DAILY [facility] Stop: 07/07/16 08:59 Last Admin: 05/09/16 09:28 Dose: 1 tab Dextrose (Glutose 40%) 30 gm PO PRN PRN PRN Reason: BLOOD GLUCOSE <60 Stop: 07/06/16 17:51 Galantamine Hydrobromide (Razadyne) 8 mg PO BID [facility] Stop: 07/07/16 08:59 Last Admin: 05/08/16 16:59 Dose: 8 mg Vancomycin HCl 1.25 gm/ Sodium (Chloride) 250 mls @ 165 mls/hr IV Q24H [facility] Stop: 07/07/16 08:59 Last Admin: 05/09/16 09:27 Dose: 165 mls/hr Ceftriaxone Sodium 1 gm/ (Dextrose) 50 mls @ 100 mls/hr IV Q24H [facility] Stop: 07/07/16 02:59 Last Admin: 05/09/16 04:15 Dose: 100 mls/hr Insulin Aspart (Novolog Insulin Sliding Scale) 0 units SUBQ ACHS ADAM PRN Reason: Protocol Stop: 07/07/16 11:29 Last Admin: 05/09/16 07:24 Dose: 6 units Insulin Detemir (Levemir Insulin) 20 units SUBQ QAM [facility] Stop: 07/07/16 08:59 Last Admin: 05/08/16 08:55 Dose: 20 units Metoprolol Tartrate (Lopressor) 25 mg PO BID [facility] Stop: 07/07/16 08:59 Last Admin: 05/09/16 09:28 Dose: 25 mg Miscellaneous (Insulin Glulisine [Apidra]) 10 unit SQ AC [facility] Stop: 07/07/16 07:29 Miscellaneous (Vancomycin Iv Per Pharmacy) 1 ea [facility] PRN PRN PRN Reason: VANCOMYCIN DOSING Stop: 07/07/16 08:37 Morphine Sulfate (Morphine) 1 mg IVP Q4H PRN PRN Reason: Pain (Moderate) Stop: 07/06/16 18:20 Morphine Sulfate (Morphine) 2 mg IVP Q4H PRN PRN Reason: Pain (Severe) Stop: 07/06/16 18:21 Neomycin/Polymyxin/Bacitracin (Triple Antibiotic Pkt) 1 pkt TP DAILY [facility] Stop: 07/07/16 08:59 Last Admin: 05/09/16 09:28 Dose: 1 pkt Senna (Senna) 17.2 mg PO HS PRN PRN Reason: Constipation Stop: 07/06/16 17:51 Assessment/Plan - Problem List Patient Problems: All Active Problems SWOLLEN, RED, PAINFUL LEFT ELBOW (Acute)
[2016-05-09] MEDS: Insulin Detemir 100 units/mL 10mL Vial SUBQ SCH (10:07)
[2016-05-09 10:22] LABS: % MONOCYTES 6.6 % (2.0-10.0); % NEUTROPHILS 72.4 % (40.0-80.0); HEMATOCRIT 39.4 % (39.0-49.0); HEMOGLOBIN 13.5 gm/dL (12.6-17.4); MEAN CELL VOLUME 86.1 fl (80-99); MEAN CORPUSCULAR HEMOGLOBIN 29.5 pg (27.0-31.0); MEAN CORPUSCULAR HGB CONC 34.3 pg (28.0-36.0); MEAN PLATELET VOLUME 7.8 fl; NEUTROPHILE ABSOLUTE 4.9 Th/cmm (1.8-8.0); PLATELET COUNT 230 Th/cmm (150-400); RED BLOOD COUNT 4.58 Mil/cmm (3.80-5.80); RED CELL DISTRIBUTION WIDTH 12.6 % (11.5-20.0); WHITE BLOOD COUNT 6.7 Th/cmm (4.8-10.8)
[2016-05-09 10:57] LABS: ANION GAP 9.3 (7.0-16.0); BUN - UREA NITROGEN 23 mg/dL (7-25); BUN/CREATININE RATIO 32.9; CHLORIDE 97 mEq/L (98-107); CREATININE - SERUM 0.7 mg/dL (0.7-1.3); POTASSIUM SERUM 4.3 mEq/L (3.5-5.1); SODIUM SERUM 126 mEq/L (136-145)
--- NOTE | 2016-05-09 10:57 | History & Physical ---
This is a 75-year-old male came in from [facility]. CHIEF COMPLAINT: Redness in the left elbow for a week, brought in by paramedics to the ER. REVIEW OF SYSTEMS: GENERAL: No fever. No chills. SKIN: Left elbow redness. HEAD: No headache. EYES: No loss of vision. No eye pain. ENT: No ear pain, no sore throat, no tinnitus. NECK: No neck pain, no swelling. CARDIOVASCULAR: No chest pain, no palpitation. PULMONARY: No shortness of breath, no cough. GASTROINTESTINAL: No nausea, no vomiting, no abdominal pain. GENITOURINARY: No dysuria. MUSCULOSKELETAL: No muscle pain, no back pain, no joint pain. ENDOCRINE: No polyuria, no polydipsia. NEUROLOGIC: No syncope, no focal symptoms. No weakness. PAST MEDICAL HISTORY: Includes hypertension, diabetes, dementia. SOCIAL HISTORY: Unremarkable. FAMILY HISTORY: Unremarkable. PHYSICAL EXAMINATION: GENERAL: Awake, alert, well-nourished, not in distress. HEAD: Atraumatic, normocephalic. EYES: PERRLA bilateral, but no conjunctival injections. SKIN: No skin breakdown, redness on the left elbow. ENMT: External ears are normal. ____ nostrils. NECK: Negative for JVD. No nuchal rigidity. RESPIRATORY: Normal air ____. Clear to auscultation. CARDIOVASCULAR: No murmurs, S1, S2, regular rate and rhythm. GASTROINTESTINAL: Positive bowel sounds, soft, and nontender. GENITOURINARY: Negative for CVA tenderness. NEUROLOGICAL: Awake, alert, oriented x 3 with no focal deficits. ADMITTING DIAGNOSIS: Left elbow cellulitis, history of hypertension, history of dementia and history of diabetes. PLAN: The patient will be admitted to the floor. We will get ID consultation with Dr. Genaro Kiser for antibiotic management. JOB# [id number]
[2016-05-09 11:11] LABS: GLUCOSE 511 mg/dL (70-105)
--- NOTE | 2016-05-09 15:01 | Infectious Disease Prog Note ---
Infectious Disease Subjective - Review of Systems Service Date: 05/09/16 Subjective: There is no new change, there is no fever. Infectious Disease Objective - Results Result Diagrams: 05/09/16 09:00 05/09/16 09:00 Recent Labs: Laboratory Last Values WBC 6.7 Th/cmm (4.8-10.8) 05/09/16 09:00 RBC 4.58 Mil/cmm (3.80-5.80) 05/09/16 09:00 Hgb 13.5 gm/dL (12.6-17.4) 05/09/16 09:00 Hct 39.4 % (39.0-49.0) 05/09/16 09:00 MCV 86.1 fl (80-99) 05/09/16 09:00 MCH 29.5 pg (27.0-31.0) 05/09/16 09:00 MCHC Differential 34.3 pg (28.0-36.0) 05/09/16 09:00 RDW 12.6 % (11.5-20.0) 05/09/16 09:00 Plt Count 230 Th/cmm (150-400) 05/09/16 09:00 MPV 7.8 fl 05/09/16 09:00 Neutrophils % 72.4 % (40.0-80.0) 05/09/16 09:00 Lymphocytes % 16.0 % (20.0-50.0) L 05/09/16 09:00 Monocytes % 6.6 % (2.0-10.0) 05/09/16 09:00 Eosinophils % 3.0 % (0.0-5.0) 05/09/16 09:00 Basophils % 2.0 % (0.0-2.0) 05/09/16 09:00 PT 9.9 SECONDS (9.5-11.5) 05/07/16 15:10 INR 1.00 (0.5-1.4) 05/07/16 15:10 PTT (Actin FS) 22.5 SECONDS (26.0-38.0) L 05/07/16 15:10 Sodium 126 mEq/L (136-145) L 05/09/16 09:00 Potassium 4.3 mEq/L (3.5-5.1) 05/09/16 09:00 Chloride 97 mEq/L (98-107) L 05/09/16 09:00 Carbon Dioxide 24.0 mEq/L (21.0-31.0) 05/09/16 09:00 Anion Gap 9.3 (7.0-16.0) 05/09/16 09:00 BUN 23 mg/dL (7-25) 05/09/16 09:00 Creatinine 0.7 mg/dL (0.7-1.3) 05/09/16 09:00 Est GFR ( Amer) TNP 05/09/16 09:00 Est GFR (Non-Af Amer) TNP 05/09/16 09:00 BUN/Creatinine Ratio 32.9 05/09/16 09:00 Glucose 511 mg/dL (70-105) H* 05/09/16 09:00 POC Glucose 243 MG/DL (70 - 105) H 05/09/16 14:40 Hemoglobin A1c % 10.1 % (4.0-6.0) H 05/07/16 15:10 Whole Bld Lactic Acid 2.08 mmol/L (0.60-2.00) H* 05/07/16 17:10 Calcium 9.0 mg/dL (8.6-10.3) 05/09/16 09:00 Total Bilirubin 0.5 mg/dL (0.3-1.0) 05/08/16 06:00 AST 17 U/L (13-39) 05/08/16 06:00 ALT 30 U/L (7-52) 05/08/16 06:00 Alkaline Phosphatase 113 U/L (34-104) H 05/08/16 06:00 Total Protein 6.3 gm/dL (6.0-8.3) 05/08/16 06:00 Albumin 2.8 gm/dL (4.2-5.5) L 05/08/16 06:00 Globulin 3.5 gm/dL 05/08/16 06:00 Albumin/Globulin Ratio 0.8 (1.0-1.8) L 05/08/16 06:00 Triglycerides 219 mg/dL (<150) H 05/08/16 06:00 Cholesterol 189 mg/dL (<200) 05/08/16 06:00 LDL Cholesterol Direct 120 mg/dL (75-193) 05/08/16 06:00 HDL Cholesterol 43 mg/dL (23-92) 05/08/16 06:00 TSH 0.70 uIU/ml (0.34-5.60) 05/08/16 06:00 - Physical Exam Vitals and I&O: Vital Signs Temp 98.2 F 05/09/16 11:00 Pulse 85 05/09/16 11:00 Resp 18 05/09/16 11:00 BP 120/58 05/09/16 11:00 Pulse Ox 97 05/09/16 11:00 Intake & Output 05/08/16 05/09/16 05/09/16 18:59 06:59 18:59 Intake Total 250 250 Balance 250 250 Intake: Intake, IV Amount 250 250 Vancomycin HCl 1.25 gm In 250 250 Sodium Chloride 0.9% 250 ml @ 165 mls/hr IV Q24H [facility] Rx#:[id number] Other: # Voids 1 Stool Characteristics Soft Formed Active Medications: Current Medications Acetaminophen (Tylenol) 650 mg PO Q6H PRN PRN Reason: PAIN Stop: 07/06/16 18:30 Bisacodyl (Dulcolax 10 Mg Supp) 10 mg RC Q72H PRN PRN Reason: Constipation Stop: 07/06/16 17:51 Calcium/Vitamin D (Oscal W/Vitamin D) 1 tab PO DAILY [facility] Stop: 07/07/16 08:59 Last Admin: 05/09/16 09:28 Dose: 1 tab Dextrose (Glutose 40%) 30 gm PO PRN PRN PRN Reason: BLOOD GLUCOSE <60 Stop: 07/06/16 17:51 Galantamine Hydrobromide (Razadyne) 8 mg PO BID [facility] Stop: 07/07/16 08:59 Last Admin: 05/09/16 12:44 Dose: 8 mg Vancomycin HCl 1.25 gm/ Sodium (Chloride) 250 mls @ 165 mls/hr IV Q24H [facility] Stop: 07/07/16 08:59 Last Infusion: 05/09/16 11:30 Dose: Infused Ceftriaxone Sodium 1 gm/ (Dextrose) 50 mls @ 100 mls/hr IV Q24H [facility] Stop: 07/07/16 02:59 Last Admin: 05/09/16 04:15 Dose: 100 mls/hr Insulin Aspart (Novolog Insulin Sliding Scale) 0 units SUBQ ACHS [facility] PRN Reason: Protocol Stop: 07/07/16 11:29 Last Admin: 05/09/16 12:04 Dose: 12 units Insulin Detemir (Levemir Insulin) 25 units SUBQ BID [facility] PRN Reason: Protocol Stop: 07/08/16 16:59 Metoprolol Tartrate (Lopressor) 25 mg PO BID [facility] Stop: 07/07/16 08:59 Last Admin: 05/09/16 09:28 Dose: 25 mg Miscellaneous (Vancomycin Iv Per Pharmacy) 1 ea [facility] PRN PRN PRN Reason: VANCOMYCIN DOSING Stop: 07/07/16 08:37 Morphine Sulfate (Morphine) 1 mg IVP Q4H PRN PRN Reason: Pain (Moderate) Stop: 07/06/16 18:20 Morphine Sulfate (Morphine) 2 mg IVP Q4H PRN PRN Reason: Pain (Severe) Stop: 07/06/16 18:21 Neomycin/Polymyxin/Bacitracin (Triple Antibiotic Pkt) 1 pkt TP DAILY [facility] Stop: 07/07/16 08:59 Last Admin: 05/09/16 09:28 Dose: 1 pkt Senna (Senna) 17.2 mg PO HS PRN PRN Reason: Constipation Stop: 07/06/16 17:51 General: no acute distress, well developed, well nourished HEENT: atraumatic, normocephalic, PERRLA Neck: supple, no thyromegaly, no lymphadenopathy Cardiovascular: no S1S2, no regular Lungs: clear to auscultation bilaterally, clear to percussion Abdomen: soft, no tender, no distended, no mass Extremities: no cyanosis, no clubbing, no edema (eft elbow is swollen and red.) Neurological: awake, alert, oriented, CN 2-12 intact Infectious Disease Assmt/Plan - Problem List Patient Problems: All Active Problems SWOLLEN, RED, PAINFUL LEFT ELBOW (Acute) - Assessment Assessment: 1. Left elbow cellulitis. 2. Dementia. 3. DM2. uncontrolled. 4. HTN. - Plan Plan: Will continue vanco and Rocephin. wond care. incrrese levmir 25 units bid..
[2016-05-10] MEDS: INSULIN ASPART SLIDING SCALE 100 UNITS/ML UNIT SUBQ SCH ×3 (06:54→17:02)
[2016-05-10] MEDS: Triple Antibiotic 0.94 gm Pkt TP SCH (09:34)
[2016-05-10] MEDS: Calcium Carb/Vit D 500 mg/200 U Tab PO SCH (09:35)
[2016-05-10] MEDS: Insulin Detemir 100 units/mL 10mL Vial SUBQ SCH ×2 (09:38→17:03)
--- NOTE | 2016-05-10 09:41 | General Progress Note ---
Objective - Results Result Diagrams: 05/09/16 09:00 05/09/16 09:00 Recent Labs: Laboratory Last Values WBC 6.7 Th/cmm (4.8-10.8) 05/09/16 09:00 RBC 4.58 Mil/cmm (3.80-5.80) 05/09/16 09:00 Hgb 13.5 gm/dL (12.6-17.4) 05/09/16 09:00 Hct 39.4 % (39.0-49.0) 05/09/16 09:00 MCV 86.1 fl (80-99) 05/09/16 09:00 MCH 29.5 pg (27.0-31.0) 05/09/16 09:00 MCHC Differential 34.3 pg (28.0-36.0) 05/09/16 09:00 RDW 12.6 % (11.5-20.0) 05/09/16 09:00 Plt Count 230 Th/cmm (150-400) 05/09/16 09:00 MPV 7.8 fl 05/09/16 09:00 Neutrophils % 72.4 % (40.0-80.0) 05/09/16 09:00 Lymphocytes % 16.0 % (20.0-50.0) L 05/09/16 09:00 Monocytes % 6.6 % (2.0-10.0) 05/09/16 09:00 Eosinophils % 3.0 % (0.0-5.0) 05/09/16 09:00 Basophils % 2.0 % (0.0-2.0) 05/09/16 09:00 PT 9.9 SECONDS (9.5-11.5) 05/07/16 15:10 INR 1.00 (0.5-1.4) 05/07/16 15:10 PTT (Actin FS) 22.5 SECONDS (26.0-38.0) L 05/07/16 15:10 Sodium 126 mEq/L (136-145) L 05/09/16 09:00 Potassium 4.3 mEq/L (3.5-5.1) 05/09/16 09:00 Chloride 97 mEq/L (98-107) L 05/09/16 09:00 Carbon Dioxide 24.0 mEq/L (21.0-31.0) 05/09/16 09:00 Anion Gap 9.3 (7.0-16.0) 05/09/16 09:00 BUN 23 mg/dL (7-25) 05/09/16 09:00 Creatinine 0.7 mg/dL (0.7-1.3) 05/09/16 09:00 Est GFR ( Amer) TNP 05/09/16 09:00 Est GFR (Non-Af Amer) TNP 05/09/16 09:00 BUN/Creatinine Ratio 32.9 05/09/16 09:00 Glucose 259 mg/dL (70-105) H 05/09/16 14:15 POC Glucose 258 MG/DL (70 - 105) H 05/10/16 06:12 Hemoglobin A1c % 10.1 % (4.0-6.0) H 05/07/16 15:10 Whole Bld Lactic Acid 2.08 mmol/L (0.60-2.00) H* 05/07/16 17:10 Calcium 9.0 mg/dL (8.6-10.3) 05/09/16 09:00 Total Bilirubin 0.5 mg/dL (0.3-1.0) 05/08/16 06:00 AST 17 U/L (13-39) 05/08/16 06:00 ALT 30 U/L (7-52) 05/08/16 06:00 Alkaline Phosphatase 113 U/L (34-104) H 05/08/16 06:00 Total Protein 6.3 gm/dL (6.0-8.3) 05/08/16 06:00 Albumin 2.8 gm/dL (4.2-5.5) L 05/08/16 06:00 Globulin 3.5 gm/dL 05/08/16 06:00 Albumin/Globulin Ratio 0.8 (1.0-1.8) L 05/08/16 06:00 Triglycerides 219 mg/dL (<150) H 05/08/16 06:00 Cholesterol 189 mg/dL (<200) 05/08/16 06:00 LDL Cholesterol Direct 120 mg/dL (75-193) 05/08/16 06:00 HDL Cholesterol 43 mg/dL (23-92) 05/08/16 06:00 TSH 0.70 uIU/ml (0.34-5.60) 05/08/16 06:00 Vancomycin Trough 5.4 ug/mL (10-20) L 05/10/16 08:10 - Physical Exam Vitals and I&O: Vital Signs Temp 98.7 F 05/10/16 04:00 Pulse 89 05/10/16 09:35 Resp 19 05/10/16 04:00 BP 133/73 05/10/16 09:35 Pulse Ox 96 05/10/16 04:00 Intake & Output 05/09/16 05/10/16 05/10/16 18:59 06:59 18:59 Intake Total 250 1550 Balance 250 1550 Intake: Intake, IV Amount 250 Vancomycin HCl 1.25 gm In 250 Sodium Chloride 0.9% 250 ml @ 165 mls/hr IV Q24H [facility] Rx#:[id number] Oral 1550 Other: # Voids 2 Active Medications: Current Medications Acetaminophen (Tylenol) 650 mg PO Q6H PRN PRN Reason: PAIN Stop: 07/06/16 18:30 Bisacodyl (Dulcolax 10 Mg Supp) 10 mg RC Q72H PRN PRN Reason: Constipation Stop: 07/06/16 17:51 Calcium/Vitamin D (Oscal W/Vitamin D) 1 tab PO DAILY [facility] Stop: 07/07/16 08:59 Last Admin: 05/10/16 09:35 Dose: 1 tab Dextrose (Glutose 40%) 30 gm PO PRN PRN PRN Reason: BLOOD GLUCOSE <60 Stop: 07/06/16 17:51 Galantamine Hydrobromide (Razadyne) 8 mg PO BID [facility] Stop: 07/07/16 08:59 Last Admin: 05/10/16 09:34 Dose: 8 mg Ceftriaxone Sodium 1 gm/ (Dextrose) 50 mls @ 100 mls/hr IV Q24H [facility] Stop: 07/07/16 02:59 Last Admin: 05/10/16 02:57 Dose: 100 mls/hr Vancomycin HCl 1.25 gm/ Sodium (Chloride) 250 mls @ 165 mls/hr IV Q12H [facility] Stop: 07/09/16 08:59 Insulin Aspart (Novolog Insulin Sliding Scale) 0 units SUBQ ACHS ADAM PRN Reason: Protocol Stop: 07/07/16 11:29 Last Admin: 05/10/16 06:54 Dose: 6 units Insulin Detemir (Levemir Insulin) 25 units SUBQ BID [facility] PRN Reason: Protocol Stop: 07/08/16 16:59 Metoprolol Tartrate (Lopressor) 25 mg PO BID [facility] Stop: 07/07/16 08:59 Last Admin: 05/10/16 09:35 Dose: 25 mg Miscellaneous (Vancomycin Iv Per Pharmacy) 1 ea [facility] PRN PRN PRN Reason: VANCOMYCIN DOSING Stop: 07/07/16 08:37 Morphine Sulfate (Morphine) 1 mg IVP Q4H PRN PRN Reason: Pain (Moderate) Stop: 07/06/16 18:20 Morphine Sulfate (Morphine) 2 mg IVP Q4H PRN PRN Reason: Pain (Severe) Stop: 07/06/16 18:21 Neomycin/Polymyxin/Bacitracin (Triple Antibiotic Pkt) 1 pkt TP DAILY [facility] Stop: 07/07/16 08:59 Last Admin: 05/10/16 09:34 Dose: 1 pkt Senna (Senna) 17.2 mg PO HS PRN PRN Reason: Constipation Stop: 07/06/16 17:51 Assessment/Plan - Problem List Patient Problems: All Active Problems SWOLLEN, RED, PAINFUL LEFT ELBOW (Acute)
--- NOTE | 2016-05-22 19:34 | Discharge Summary ---
HOSPITAL COURSE: The patient was admitted from a senior living to the Emergency Room with chief complaint of redness on the left elbow for one week. Then from ER, the patient was noted to have cellulitis on the left elbow and the patient was admitted to med/surg floor. Series of IV antibiotics given with the consultation from ID specialist. The patient was discharged back to [facility] with final diagnosis of cellulitis of the left elbow, dementia, and history of diabetes. JOB# [id number]
== END 2016-05-10 18:15 | DRG 872 ==
LOC: ER 13:56 → MSI 17:25
PROVIDERS: ADMIT Internal Medicine; ATTEND Internal Medicine
DX: A41.9 Sepsis, unspecified organism (principal); R64 Cachexia; E87.2 Acidosis; L03.114 Cellulitis of left upper limb; L02.414 Cutaneous abscess of left upper limb; G30.9 Alzheimer's disease, unspecified; E11.65 Type 2 diabetes mellitus with hyperglycemia; F02.80 Dementia in other diseases classified elsewhere, unspecified severity, without behavioral disturbance, psychotic disturbance, mood disturbance, and anxiety; I10 Essential (primary) hypertension; Z83.3 Family history of diabetes mellitus
CPT/HCPCS: 36415-UA; 73080-TC-LT; 80048-TC; 80053-TC; 80061-TC; 80202-TC; 82947-TC; 82948-90; 83036-90; 83605; 84443-TC; 85025-TC; 85610-TC; 87070-90; J0696; J1815; J2543; J3370; Z7610